=== PATIENT | male | born 1975 | race Asian ===

== ENCOUNTER 2016-11-17 22:53 | Emergency (ER) | payer MEDICAID, OTHER ==
[~2016-11-17] VITALS: Ht 167.6 cm; Wt 54.4 kg
[2016-11-17 22:55] VITALS: BP 133/88
--- NOTE | 2016-11-17 23:15 | NUR ---
PATIENT PRESENTS TO ED WITH c/o being SLEEPY, HARD TO OPEN EYES FOR 7 HOURS, NEARBY HAS GAS LEAKING. HAS ANXIETY. PT DENIES N/V/D; SKIN IS PINK/WARM/DRY; AAOX4 WITH EVEN AND STEADY GAIT; LUNGS CLEAR BL; HR EVEN AND REGULAR; PT DENIES ANY FEVER, CP, SOB, OR COUGH AT THIS TIME; PATIENT STATES PAIN OF 0/10 AT THIS TIME; VSS; PATIENT POSITIONED FOR COMFORT; HOB ELEVATED; BEDRAILS UP X2; BED DOWN. ER MD MADE AWARE OF PT STATUS.
[2016-11-17 23:43] VITALS: BP 133/88
--- NOTE | 2016-11-17 23:43 | NUR ---
Patient discharged with v/s stable. Written and verbal after care instructions given and explained. Patient verbalized understanding. Ambulatory with steady gait. All questions addressed prior to discharge. Advised to follow up with PMD.
== END 2016-11-17 23:43 | disposition home or self-care (01) ==
LOC: MED 22:53
DX: F41.9 Anxiety disorder, unspecified (principal); R03.0 Elevated blood-pressure reading, without diagnosis of hypertension
CPT/HCPCS: 99281